=== PATIENT | male | born 1995 | race African-American/Black ===

== ENCOUNTER 2016-12-23 12:54 | Emergency (ER) | payer BC ==
[~2016-12-23] VITALS: Ht 154.9 cm; Wt 67.0 kg
[2016-12-23 13:05] VITALS: BP 111/68
== END 2016-12-23 15:15 | disposition home or self-care (01) ==
LOC: EMS 12:56 → EDBD 12:56 → EMS 15:15
DX: S11.91XA Laceration without foreign body of unspecified part of neck, initial encounter (principal); Z91.09 Other allergy status, other than to drugs and biological substances; Y08.89XA Assault by other specified means, initial encounter; Y93.89 Activity, other specified; Y92.89 Other specified places as the place of occurrence of the external cause; Y99.8 Other external cause status
CPT/HCPCS: 12002; 99283